=== PATIENT | female | born 1945 | race Caucasian/White ===

== ENCOUNTER 2021-11-19 21:14 | Inpatient (IN) ==
[2021-11-19] MEDS ORDERED: ACETAMINOPHEN 1,000 MG/100 ML VIAL IV STA (22:04)
[2021-11-19] MEDS ORDERED: guaiFENesin 600 MG TABCR PO STA (22:04)
[2021-11-19] MEDS ORDERED: ALBUTEROL HFA 8 GM INHALER INH ONE (22:04)
[2021-11-19] MEDS ORDERED: SODIUM CHLORIDE 0.9% 1000ML 1,000 ML IV ONE (22:04)
[2021-11-19 22:21] LABS: Basophils # (auto) 0.01 K/uL (0-0.2); Basophils % (auto) 0.1 %; Immature Granulocytes # (auto) 0.06 K/uL (0.00-0.02); Immature Granulocytes % (auto) 0.9 %; Lymphocytes % (auto) 13.5 %; Mean Corpuscular Hemoglobin 29.9 pg (25.0-34.0); Mean Corpuscular Hgb Conc 33.3 g/dL (32.0-36.0); Mean Corpuscular Volume 89.8 fL (80.0-100.0); Mean Platelet Volume 9.6 fL (9.4-12.3); Monocytes # (auto) 0.93 K/uL (0.24-0.82); Monocytes % (auto) 13.9 %; Neutrophils # (auto) 4.78 K/uL (1.4-6.5); Neutrophils % (auto) 71.6 %; Platelet Count 169 K/uL (130-400); RDW Coefficient of Variation 13.8 % (11.5-14.5); RDW Standard Deviation 45.2 fL (36.4-46.3); Red Blood Count 5.01 M/uL (3.93-5.22); White Blood Count 6.68 K/ul (4.8-10.8)
--- NOTE | 2021-11-19 22:26 | XRay Report ---
SINGLE VIEW CHEST CLINICAL HISTORY: Atypical chest pain. FINDINGS: An AP, portable, upright chest radiograph is obtained. No prior studies are available for c omparison at the time of dictation. The cardiomediastinal silhouette is unremarkable. There is a larg e hiatal hernia with left basilar atelectasis. The lungs and pleural spaces are clear. No pneumothora x is seen. The skeletal structures are osteopenic. The bony thorax is grossly intact. IMPRESSION: 1. No active disease in the chest. 2. Large hiatal hernia. ACT 112: Negative or not required by law. Electronically signed by: Dawson Mcmahon M.D. 11/19/2021 10:25 PM
[2021-11-19 22:38] LABS: INR 1.1 (0.9-1.1); Prothrombin Time 11.5 Seconds (9.0-12.0)
[2021-11-19 22:53] LABS: Troponin I High Sensitivity 212.2 pg/ml (0-14)
[2021-11-19 22:54] LABS: Albumin Globulin Ratio 1.3 (0.9-2); Albumin Level 3.7 gm/dl (3.4-5.0); Bilirubin,Total 0.8 mg/dl (0.2-1.0); Calcium 8.3 mg/dl (8.5-10.1); Creatinine Clr Calc Pharmacy 54.1 ml/min; Est GFR (African American) 77.2 ml/min; Est GFR (Non-African American) 66.6 ml/min; Globulin 2.9 gm/dl (2.5-4.0); Magnesium 1.9 mg/dl (1.7-2.4); Phosphorus 2.2 mg/dl (2.5-4.9); Potassium 3.6 mmol/L (3.5-5.1); Total Protein 6.6 gm/dl (6.0-8.3)
[2021-11-19] MEDS ORDERED: dexAMETHasone**PF** 10 MG/ML VIAL IV ONE (23:34)
[2021-11-20 00:10] LABS: Base Excess VBG 2.2 mEq/L; HCO3 VBG 28 mmol/L; Oxygen Saturation VBG < 60.0 %; PCO2 VBG 46 mmHg (38-50); PO2 VBG 29 mmHg; pH VBG 7.39 (7.36-7.41)
--- NOTE | 2021-11-20 01:55 | Emergency Department Note ---
Impression & Plan COVID-19, Hypoxia, Elevated troponin ED Provider Note NAME: VALDO LINDSAY AGE: 76 SEX: F ARRIVES VIA: Ambulance INFORMANT: Patient ED PROVIDER(S): Eliazar Mcgill MD CHIEF COMPLAINT: SOB. PLAN: Disposition: Admit MEDICAL DECISION MAKING: The patient is a pleasant 76-year-old woman who presents to the emergency department via EMS for worsening cough, congestion shortness of breath in the setting of symptoms that began last week where she took a home COVID-19 test that was positive. She reports her also became ill around the same time and also tested for COVID-19 with a home test. She reports worsening cough congestion, nausea with decreased oral intake. She reports she is not vaccinated for COVID-19. Per EMS report the patient was found to be in the 80s on room air. On arrival, the patient is ill-appearing but no acute distress, temperature of 37.6 with O2 saturation 90-94 on nasal cannula. Patient appears clinically dry. Patient has a scant intermittent wheeze and lungs are otherwise clear. EKG without overt acute ischemia. CXR negative for acute cardiopulmonary process. WBC, hemoglobin and platelets within normal limits. Chemistry without metabolic acidosis. VBG is unremarkable. Initial high-sensitivity troponin 212, nonspecific. Lipase is not elevated. Procalcitonin is not elevated. COVID-19 PCR was positive. Patient was treated with IV fluid hydration, dexamethasone, guaifenesin, albuterol. Given the patient's hypoxia in the setting of COVID-19 patient agrees with plan for admission. Case [facility], who will evaluate the patient for admission. Triage Nursing notes reviewed and agree them. Prior medical records reviewed Vital Signs: reviewed and remarkable for hypoxia. Differential diagnosis: Reactive airway disease, pneumonia, pneumothorax, COPD, CHF, infections, cardiac ischemia, pulmonary embolism, musculoskeletal, gastrointestinal, as well as other pathologies. ER treatment provided: See below. Diagnostics interpreted by me: ECG: Sinus tachycardia, 111 bpm, no ectopy, nonspecific ST abnormality, no overt ST elevation or depression, QTC 446, QRS 72. Cardiac Monitoring: An order for continuous cardiac monitoring was placed and demonstrated Sinus tachycardia, 111 bpm, no ectopy. Laboratory studies: See below Imaging studies: See below Consultation(s): Case was discussed with Dr. Hernandez, [facility] hospitalist, who will evaluate the patient for admission. HPI: The patient is a pleasant 76-year-old woman who presents to the emergency department via EMS for worsening cough, congestion shortness of breath in the setting of symptoms that began last week where she took a home COVID-19 test that was positive. She reports her also became ill around the same time and also tested for COVID-19 with a home test. She reports worsening cough con gestion, nausea with decreased oral intake. She reports she is not vaccinated for COVID-19. Per EMS report the patient was found to be in the 80s on room air. ROS: See above HPI for pertinent positives & negatives. A total of 10 systems reviewed and were otherwise negative. VITALS:See Below PHYSICAL EXAMINATION: GENERAL: Awake, alert, uncomfortable-appearing, in no distress HENT: Normocephalic, atraumatic. Oropharynx with dry mucous membranes and otherwise unremarkable. EYES: Normal conjunctiva. Sclera non-icteric. NECK: Supple. No nuchal rigidity. FROM. No JVD. RESPIRATORY: Scant intermittent wheeze and otherwise clear to auscultation. CARDIAC: Regular rate, normal rhythm. Extremities warm and well perfused. Pulses equal. ABDOMEN: Soft, non-distended. No tenderness to palpation. No rebound or guarding. No masses. RECTAL: Deferred. MUSCULOSKELETAL: Chest examination reveals no tenderness. The back is sym metrical on inspection without obvious abnormality. There is no CVA tenderness to palpation. No joint edema. LOWER EXTREMITIES: Calves are equal size bilaterally and non-tender. No edema. No discoloration. NEURO: Normal sensorium. No sensory or motor deficits noted. SKIN: No rash or jaundice noted. ED COURSE: Critical Care: I have personally spent greater than 35 minutes of critical care time in the direct management of this patient. This includes bedside care, interpretation of diagnostic studies, and testing, discussion with consultants, patient, and family members, and other required patient management activities. This 35 minutes is in excess of all separately billable procedures. Eliazar Mcgill MD Past Med/Surg History Medical History COVID-19 Family History Other Family history non-contributory Social History Smoking Status: Never smoker Hx Alcohol Use: No Hx Substance Use: No Preferred Language: Citizen Of [place] Communication Ability: Effective Freight Rate Specialist Required: No Beliefs That Will Affect Care: None Current Living Situation: Spouse Other Information That Helps Us Care for You: No Feels Safe at Home: Yes Safety Concerns: Feels Safe At This Time Allergies Allergies Allergy/AdvReac Type Severity Reaction Status Date / Time No Known Allergies Allergy Verified 11/19/21 23:28 Home Meds Home Medications Medication Instructions Recorded Confirmed acetaminophen 300 mg-codeine 30 mg 1 tab PO TID PRN Pain 11/20/21 11/20/21 tablet Results & Data (ED) Vital Signs Vital Signs - 24 hr 11/19/21 21:43 11/19/21 22:15 11/19/21 23:08 Temperature 37.6 C H Temperature Source Oral Pulse Rate 101 H 111 H Pulse Rate [Apical] Pulse Rhythm Regular Respiratory Rate 22 22 Respiratory Effort / Characteristics Spontaneous Respiratory Depth Blood Pressure 183/117 H Blood Pressure [Right Arm] Blood Pressure Mean 139 Blood Pressure Mean [Right Arm] Pulse Oximetry 93 93 Oxygen Delivery Method Nasal Cannula Nasal Cannula Nasal Cannula Oxygen Flow Rate 4 4 4 Sepsis Recent Fever Within 48 Hours Yes Sepsis New/Unexplained Change in Mental Status No Sepsis Action Taken by Nursing Physician Notified Oxygen Flow Rate - Titration Pulse Oximetry Post Tiitration 11/19/21 23:08 11/19/21 23:30 11/20/21 01:00 Temperature Temperature Source Pulse Rate Pulse Rate [Apical] 93 H 88 Pulse Rhythm Respiratory Rate 22 18 Respiratory Effort / Characteristics Respiratory Depth Normal Normal Blood Pressure Blood Pressure [Right Arm] 134/96 166/85 H Blood Pressure Mean Blood Pressure Mean [Right Arm] 108 112 Pulse Oximetry 88 L 91 94 Oxygen Delivery Method Nasal Cannula Nasal Cannula Nasal Cannula Oxygen Flow Rate 2 4 6 Sepsis Recent Fever Within 48 Hours Sepsis New/Unexplained Change in Mental Status Sepsis Action Taken by Nursing Oxygen Flow Rate - Titration 4 Pulse Oximetry Post Tiitration 92 Laboratory Data Attestation: I reviewed the patient's lab results. Result diagrams: 11/19/21 21:37 11/19/21 21:37 Lab Results 11/19/21 11/19/21 11/19/21 Range/Units 21:37 21:37 21:37 WBC 6.68 (4.8-10.8) K/ul RBC 5.01 (3.93-5.22) M/uL Hgb 15.0 (12.0-16.0) g/dl Hct 45.0 H (34.1-44.9) % MCV 89.8 (80.0-100.0) fL MCH 29.9 (25.0-34.0) pg MCHC 33.3 (32.0-36.0) g/dL RDW Std Deviation 45.2 (36.4-46.3) fL RDW Coeff of Jovanni 13.8 (11.5-14.5) % Plt Count 169 (130-400) K/uL MPV 9.6 (9.4-12.3) fL Immature Gran % (Auto) 0.9 % Neut % (Auto) 71.6 % Lymph % (Auto) 13.5 % Moody % (Auto) 13.9 % Eos % (Auto) 0.0 % Baso % (Auto) 0.1 % Neut # (Auto) 4.78 (1.4-6.5) K/uL Lymph # (Auto) 0.90 L (1.2-3.4) K/uL Moody # (Auto) 0.93 H (0.24-0.82) K/uL Eos # (Auto) 0.00 (0-0.50) K/uL Baso # (Auto) 0.01 (0-0.2) K/uL Immature Gran # (Auto) 0.06 H (0.00-0.02) K/uL PT 11.5 (9.0-12.0) Seconds INR 1.1 (0.9-1.1) VBG pH (7.36-7.41) VBG pCO2 (38-50) mmHg VBG pO2 mmHg VBG HCO3 mmol/L VBG O2 Saturation % VBG Base Excess mEq/L Sodium 138 (136-145) mmol/L Potassium 3.6 (3.5-5.1) mmol/L Chloride 105 (98-107) mmol/L Carbon Dioxide 24 (21-32) mmol/L Anion Gap 9 (3-11) BUN 16 (6-23) mg/dl Creatinine 0.84 (0.6-1.2) mg/dl Est Cr Clr Drug Dosing 54.1 ml/min Est GFR ( Amer) 77.2 ml/min Est GFR (Non-Af Amer) 66.6 ml/min BUN/Creatinine Ratio 19.0 (10-20) Glucose 120 H (70-99(Fasting)) mg/dl Calcium 8.3 L (8.5-10.1) mg/dl Phosphorus 2.2 L (2.5-4.9) mg/dl Magnesium 1.9 (1.7-2.4) mg/dl Total Bilirubin 0.8 (0.2-1.0) mg/dl AST 25 (13-39) U/L ALT 25 (7-52) U/L Alkaline Phosphatase 63 (34-104) U/L Troponin I High Sens 212.2 H* (0-14) pg/ml Total Protein 6.6 (6.0-8.3) gm/dl Albumin 3.7 (3.4-5.0) gm/dl Globulin 2.9 (2.5-4.0) gm/dl Albumin/Globulin Ratio 1.3 (0.9-2) Lipase 46 (11-82) U/L Procalcitonin (0-0.5) ng/ml SARS-CoV-2 (PCR) (Negative) 11/19/21 11/19/21 11/19/21 Range/Units 21:37 22:17 23:55 WBC (4.8-10.8) K/ul RBC (3.93-5.22) M/uL Hgb (12.0-16.0) g/dl Hct (34.1-44.9) % MCV (80.0-100.0) fL MCH (25.0-34.0) pg MCHC (32.0-36.0) g/dL RDW Std Deviation (36.4-46.3) fL RDW Coeff of Jovanni (11.5-14.5) % Plt Count (130-400) K/uL MPV (9.4-12.3) fL Immature Gran % (Auto) % Neut % (Auto) % Lymph % (Auto) % Moody % (Auto) % Eos % (Auto) % Baso % (Auto) % Neut # (Auto) (1.4-6.5) K/uL Lymph # (Auto) (1.2-3.4) K/uL Moody # (Auto) (0.24-0.82) K/uL Eos # (Auto) (0-0.50) K/uL Baso # (Auto) (0-0.2) K/uL Immature Gran # (Auto) (0.00-0.02) K/uL PT (9.0-12.0) Seconds INR (0.9-1.1) VBG pH 7.39 (7.36-7.41) VBG pCO2 46 (38-50) mmHg VBG pO2 29 mmHg VBG HCO3 28 mmol/L VBG O2 Saturation < 60.0 % VBG Base Excess 2.2 mEq/L Sodium (136-145) mmol/L Potassium (3.5-5.1) mmol/L Chloride (98-107) mmol/L Carbon Dioxide (21-32) mmol/L Anion Gap (3-11) BUN (6-23) mg/dl Creatinine (0.6-1.2) mg/dl Est Cr Clr Drug Dosing ml/min Est GFR ( Amer) ml/min Est GFR (Non-Af Amer) ml/min BUN/Creatinine Ratio (10-20) Glucose (70-99(Fasting)) mg/dl Calcium (8.5-10.1) mg/dl Phosphorus (2.5-4.9) mg/dl Magnesium (1.7-2.4) mg/dl Total Bilirubin (0.2-1.0) mg/dl AST (13-39) U/L ALT (7-52) U/L Alkaline Phosphatase (34-104) U/L Troponin I High Sens (0-14) pg/ml Total Protein (6.0-8.3) gm/dl Albumin (3.4-5.0) gm/dl Globulin (2.5-4.0) gm/dl Albumin/Globulin Ratio (0.9-2) Lipase (11-82) U/L Procalcitonin < 0.05 (0-0.5) ng/ml SARS-CoV-2 (PCR) POSITIVE A* (Negative) Administered Medications Sodium Chloride (1/2 Nss) 1,000 mls @ 75 mls/hr IV .[id number] SAMANTA Stop: 11/20/21 15:47 Last Admin: 11/20/21 02:51 Dose: 75 mls/hr Documented By: PETER Discontinued Medications Albuterol (Albuterol Hfa 8 Gm Inhaler) 2 puffs INH NOW ONE Stop: 11/19/21 22:05 Last Admin: 11/19/21 22:23 Dose: 2 puffs Documented By: WILBERT Dexamethasone Sodium Phosphate (DexamethasonePf 10 Mg/Ml Vial) 10 mg IV NOW ONE Stop: 11/19/21 23:35 Last Admin: 11/20/21 00:01 Dose: 10 mg Documented By: IVAN Guaifenesin (Guaifenesin 600 Mg Tabcr) 600 mg PO NOW STA Stop: 11/19/21 22:05 Last Admin: 11/19/21 22:22 Dose: 600 mg Documented By: WILBERT Sodium Chloride (Nss 1000ml) 1,000 mls @ 999 mls/hr IV .[id number] ONE Stop: 11/19/21 23:04 Last Infusion: 11/19/21 23:30 Dose: 0 mls/hr Documented By: Admin: 11/19/21 22:24 Dose: 999 mls/hr Documented By: WILBERT Acetaminophen (Ofirmev) 1,000 mg in 100 mls @ 400 mls/hr IV NOW STA Stop: 11/19/21 22:18 Last Infusion: 11/19/21 23:03 Dose: 0 mls/hr Documented By: Admin: 11/19/21 22:23 Dose: 400 mls/hr Documented By: WILBERT Remdesivir 200 mg/ Sodium (Chloride) 250 mls @ 125 mls/hr IV ONE ONE; Protocol Stop: 11/20/21 04:44 Last Admin: 11/20/21 02:52 Dose: 125 mls/hr Documented By: PETER Imaging Data Radiologist's Impression: Chest X-Ray 11/19/21 22:04 SINGLE VIEW CHEST CLINICAL HISTORY: Atypical chest pain. FINDINGS: An AP, portable, upright chest radiograph is obtained. No prior studies are available for comparison at the time of dictation. The cardiomediastinal silhouette is unremarkable. There is a large hiatal hernia with left basilar atelectasis. The lungs and pleural spaces are clear. No pneumothorax is seen. The skeletal structures are osteopenic. The bony thorax is grossly intact. IMPRESSION: 1. No active disease in the chest. 2. Large hiatal hernia. ACT 112: Negative or not required by law. Electronically signed by: Dawson Mcmahon M.D. 11/19/2021 10:25 PM Discharge Plan Visit Data Chief Complaint: Respiratory Distress Stated Complaint: SHORTNESS OF BREATH/WEAKNESS ED Provider: Eliazar Mcgill Discharge Problem: COVID-19, Hypoxia, Elevated troponin Patient Disposition: Admitted As Inpatient Discharge Instructions Interventions: ED Discharge Assessment Last Done: 11/20/21 02:04
--- NOTE | 2021-11-20 02:04 | History and Physical Report ---
DATE OF ADMISSION: 11/19/2021. CHIEF COMPLAINT: COVID, hypoxia. HISTORY OF PRESENT ILLNESS: A 76-year-old female with no significant past medical history who presents with COVID. The patient is very hard of hearing, seems to be a poor historian. Says she does not have any medical problems. She states, since about a week, she is having COVID symptoms, feeling sick. Denies any fever, but has some mild cough, mild headache, nausea, poor appetite, body aches, and when she came to the ER, she was 88% on room air. On 4 liters, saturating okay and seems comfortable. Denies any blurred visions, no runny nose, no sore throat. No chest pain. Denies feeling short of breath, has some nausea, no vomiting, no abdominal pain. Normal bowel and bladder movements. No swelling in the legs. ALLERGIES: No known drug allergies. PAST MEDICAL HISTORY: As mentioned above. PAST SURGICAL HISTORY: Denies any surgical history. MEDICATIONS: The patient denies taking any medication at home. FAMILY HISTORY: The patient denies any family history. SOCIAL HISTORY: The patient denies smoking of alcohol. Lives with her . REVIEW OF SYSTEMS: As per HPI. Rest of review of systems is negative. PHYSICAL EXAMINATION: GENERAL: The patient is of moderate build, not in acute distress. VITAL SIGNS: Temperature 37.6, pulse 93, respiration 22, blood pressure 134/96, oxygen 91% on 4 liters. HEENT: Pupils equal, round and reactive to light. Oral mucosa moist. NECK: No JVD, no neck masses. CARDIOVASCULAR: S1 and S2 heard. Regular rate and rhythm. No murmur, no gallop. RESPIRATORY SYSTEM: Normal AP diameter. No accessory muscle use. No wheezing or crackles. ABDOMEN: Soft, bowel sounds present, nontender, no distention. CENTRAL NERVOUS SYSTEM: Cranial nerves II-XII grossly intact, nonfocal. EXTREMITIES: No edema, no erythema. LABORATORY DATA: WBC 6.6, hemoglobin 15, hematocrit 45, platelets 169. PT 11.5, INR 1.1. Venous blood gas; pH of 7.39, pCO2 of 46, pO2 of 29, bicarbonate 28. Sodium 138, potassium 3.6, chloride 105, bicarbonate 24, BUN 16, creatinine 0.8, serum glucose 120, calcium 8.3, phosphorus 2.2, magnesium 1.9, total bilirubin 0.8, AST 25, ALT 25, alkaline phosphatase 63. Troponin I high sensitivity 212. Lipase 48. Procalcitonin less than 0.05. SARS-CoV-2 PCR positive. IMAGING: Chest x-ray: No active disease in the chest. EKG: Sinus tachycardia at a rate of 111, possible left atrial enlargement, nonspecific ST abnormalities. ASSESSMENT AND PLAN: This 76-year-old female presents with COVID. 1. COVID-19 and hypoxia, 88% on room air, requiring oxygen. Chest x-ray, no obvious pneumonia. Symptoms going on for about a week, started on Decadron and remdesivir. Follow the remdesivir laboratories. Monitor in the med-telemetry. 2. Elevation of troponin high sensitivity at 212. EKG, no acute findings. The patient denies any chest pain. Possibly from demand ischemia. We will follow serial cardiac enzymes. 3. Deep venous thrombosis prophylaxis, Lovenox. DISPOSITION: Admit to med-tele. Expect to discharge home and follow up with family doctor. Job ID: [id number] [facility]ITALChristina
[2021-11-20] MEDS ORDERED: NITROGLYCERIN SL 0.4 MG/TAB TAB SL PRN (02:28)
[2021-11-20] MEDS ORDERED: ACETAMINOPHEN 325 MG TAB PO PRN (02:28)
[2021-11-20] MEDS ORDERED: SODIUM CHLORIDE 0.45 % 1,000 ML IV SCH (02:28)
[2021-11-20] MEDS ORDERED: REMDESIVIR 200 MG in SODIUM CHLORIDE 0.9% 210 ML IV ONE (02:45)
[2021-11-20] MEDS: ENOXAPARIN INJ 40 MG/0.4 ML SYR SQ SCH (05:59)
[2021-11-20 07:25] LABS: Basophils # (auto) 0.01 K/uL (0-0.2); Basophils % (auto) 0.3 %; Hematocrit (blood only) 42.6 % (34.1-44.9); Hemoglobin 14.5 g/dl (12.0-16.0); Immature Granulocytes # (auto) 0.05 K/uL (0.00-0.02); Immature Granulocytes % (auto) 1.4 %; Lymphocytes % (auto) 10.9 %; Mean Corpuscular Hemoglobin 29.9 pg (25.0-34.0); Mean Corpuscular Volume 87.8 fL (80.0-100.0); Mean Platelet Volume 9.5 fL (9.4-12.3); Monocytes # (auto) 0.13 K/uL (0.24-0.82); Monocytes % (auto) 3.6 %; Neutrophils # (auto) 3.07 K/uL (1.4-6.5); Neutrophils % (auto) 83.8 %; Platelet Count 132 K/uL (130-400); RDW Coefficient of Variation 13.7 % (11.5-14.5); Red Blood Count 4.85 M/uL (3.93-5.22); White Blood Count 3.66 K/ul (4.8-10.8)
[2021-11-20] MEDS: dexAMETHasone 6 MG in SYRINGE 0 ML IV SCH (07:43)
[2021-11-20 07:49] LABS: BUN Creatinine Ratio 19.4 (10-20); Calcium 7.9 mg/dl (8.5-10.1); Creatinine Clr Calc Pharmacy 62.8 ml/min; Est GFR (Non-African American) 80.2 ml/min; Magnesium 1.9 mg/dl (1.7-2.4); Potassium 3.9 mmol/L (3.5-5.1)
[2021-11-20 08:36] LABS: Troponin I High Sensitivity 240.9 pg/ml (0-14)
[2021-11-20] MEDS: LOSARTAN POTASSIUM 25 MG TAB PO SCH (08:48)
[2021-11-20] MEDS ORDERED: LOSARTAN POTASSIUM 25 MG TAB PO SCH (09:00)
[2021-11-20] MEDS ORDERED: hydrOXYzine HCl 25 MG TAB PO PRN (09:06)
[2021-11-20 09:15] LABS: Appearance Urine Cloudy (Clear); Bacteria Urine Automated Negative (Negative); Bilirubin Urine Negative (Negative); Blood Urine Trace (Negative); Color Urine Yellow; Epithelial Cell Urine Auto >30 /lpf (0-5); Glucose Urine UA Trace (Negative); Ketones Urine Trace (Negative); Leukocyte Esterase Urine Trace (Negative); Nitrite Urine Negative (Negative); Protein Urine 1+ (Negative); RBC Urine Automated 0-4 /hpf (0-4); Specific Gravity Urine 1.023 (1.000-1.030); Urobilinogen Urine Negative (Negative)
--- NOTE | 2021-11-20 11:17 | Electrocardiogram Report ---
Test Reason : Blood Pressure : / mmHG Vent. Rate : 111 BPM Atrial Rate : 111 BPM P-R Int : 126 ms QRS Dur : 072 ms QT Int : 328 ms P-R-T Axes : 062 050 063 degrees QTc Int : 446 ms Sinus tachycardia Left atrial enlargement Nonspecific ST abnormality Abnormal ECG No previous ECGs available Confirmed by Hubert Quiroz ([id number]) on 11/20/2021 11:16:37 AM Referred By: REFERRED SELF Confirmed By:Hubert Quiroz
[2021-11-20] MEDS: PARoxetine HCL 10 MG TAB PO SCH (13:03)
--- NOTE | 2021-11-20 13:22 | Hospitalist Progress Note ---
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 Patient found to be COVID- positive. She is not vaccinated. She is being managed for the following: #. COVID-19 infection #. Acute hypoxemic respiratory failure Patient not vaccinated against COVID, not on home oxygen. Admitting WBC and Procal wnl. Patient was saturating 88% on room air at presentation, required up to 6 L oxygen, requiring 4 L oxygen currently. Continue with Decadron and remdesivir started 11/20. Patient with cough with clear sputum, altered taste sensation. Self proning as able, incentive spirometer, flutter valve, Tessalon Perles, Mucinex. Pt afebrile, WBC downtrending. Labs in AM. Continue to monitor over telemetry. #. Elevation of troponin, likely demand ischemia Troponin elevated at 212, up trended slightly, follow-up third troponin level Admitting EKG with no acute findings except for sinus tachycardia Likely demand ischemia, patient with no chest pain, continue to monitor. #. Likely UTI, recurrent : Patient with complain of incontinence and increased frequency, UA questionable. Rocephin. #. Hypertension Patient with apparently no outpatient PCP visit, not sure. Blood pressure elevated while in hospital, started on a low-dose losartan Continue to monitor BP, uptitrate meds as appropriate. #. Other chronic medical conditions: Likely anxiety/depression/low back pain Patient complaining of low back pain, per RN's discussion with her daughter patient takes paroxetine 10 mg daily and clonazepam 0.5 mg as needed daily for anxiety. Vistaril for anxiety for now. Paroxetine daily started. I tried to contact patient's daughter Hiwot [[phone]] multiple times today but in vain and could not leave voicemail, it would ask remote access code at the end. #. DVT prophylaxis: Enoxaparin #. Full code Text document was generated using voice recognition software. It may contain grammatical or spelling errors. Kindly contact undersigned for clarification of any documentation item in question. Admission and Anticipated Discharge Date Admission Date: November 20, 2021 Subjective Patient seen and examined at bedside as a follow-up of COVID-19 infection and hypoxia and elevated troponin and possible UTI. Patient was lying in bed, on 4 L nasal cannula oxygen, NAD, reports no new acute events overnight. Patient reports cough around the same since last 1 week with clear mucus, reports increased frequency in urine, is eating around 25 to 30% per RN, does not have appetite but is trying to eat per RN, no nausea or vomiting, denies headache or dizziness, reports no belly pain. Of note patient is very hard of hearing and difficult to get history/ROS from. Patient is not vaccinated against COVID. Patient mostly says "I am not sure" to a lot of questions. Physical Exam Physical Exam: GENERAL: Alert and oriented x3. NAD, on 4L NC O2. Very [place]. HEENT: No pallor, no icterus. Pupils equal, round and reactive to light. Oral mucosa moist. NECK: No JVD, no neck masses. HEART: S1 and S2 heard. Regular rate and rhythm. No murmur, no gallop. RESPIRATORY SYSTEM: Normal AP diameter. No accessory muscle use. No wheezing, no crackles. ABDOMEN: Soft, bowel sounds present, nontender, no distention. CENTRAL NERVOUS SYSTEM: No facial droop. Speech is clear. Obeys simple commands. Moves extremities. EXTREMITIES: No edema, no erythema seen. Results & Data Results & Data ([facility]) Vital Signs (Past 12 Hours) Vital Signs Temp Pulse Pulse Resp BP BP Pulse Ox 11/20/21 07:47 69 11/20/21 07:39 36.3 C L 81 23 180/106 H 94 11/20/21 07:28 11/20/21 03:01 85 11/20/21 02:43 11/20/21 02:29 36.9 C 89 20 179/110 H 93 11/20/21 02:04 85 22 150/86 H 93 O2 Del Method O2 Flow Rate 11/20/21 07:47 11/20/21 07:39 Nasal Cannula 4 11/20/21 07:28 Nasal Cannula 11/20/21 03:01 11/20/21 02:43 Nasal Cannula 6 11/20/21 02:29 Nasal Cannula 6 11/20/21 02:04 Nasal Cannula 6
[2021-11-20] MEDS: cefTRIAXone SODIUM 1,000 MG in DEXTROSE 5% 50 ML IV SCH (13:37)
[2021-11-20] MEDS: BENZONATATE 100 MG CAPSULE PO SCH ×2 (13:37→19:52)
[2021-11-20] MEDS: guaiFENesin 600 MG TABCR PO SCH (19:51)
[2021-11-20] MEDS ORDERED: hydrALAZINE HCL 20 MG/ML VIAL IV ONE (23:34)
[2021-11-21] MEDS: ENOXAPARIN INJ 40 MG/0.4 ML SYR SQ SCH (05:07)
[2021-11-21 07:23] LABS: Hematocrit (blood only) 42.6 % (34.1-44.9); Hemoglobin 14.6 g/dl (12.0-16.0); Mean Corpuscular Hemoglobin 29.9 pg (25.0-34.0); Mean Corpuscular Hgb Conc 34.3 g/dL (32.0-36.0); Mean Corpuscular Volume 87.3 fL (80.0-100.0); Mean Platelet Volume 9.5 fL (9.4-12.3); Platelet Count 148 K/uL (130-400); RDW Coefficient of Variation 13.4 % (11.5-14.5); RDW Standard Deviation 43.4 fL (36.4-46.3); Red Blood Count 4.88 M/uL (3.93-5.22)
[2021-11-21 07:34] LABS: Albumin Globulin Ratio 1.4 (0.9-2); Albumin Level 3.5 gm/dl (3.4-5.0); Bilirubin,Total 0.8 mg/dl (0.2-1.0); Calcium 8.3 mg/dl (8.5-10.1); Creatinine Clr Calc Pharmacy 61.1 ml/min; Est GFR (African American) 89.9 ml/min; Est GFR (Non-African American) 77.6 ml/min; Globulin 2.5 gm/dl (2.5-4.0); Magnesium 1.8 mg/dl (1.7-2.4); Potassium 3.5 mmol/L (3.5-5.1)
[2021-11-21] MEDS ORDERED: POTASSIUM CHLORIDE CRTAB 20 MEQ TABCR PO STA (07:36)
[2021-11-21] MEDS: POT PHOSPHATE MONOBASIC W/ SOD TAB PO SCH ×4 (08:09→20:03)
[2021-11-21] MEDS: dexAMETHasone 6 MG in SYRINGE 0 ML IV SCH (08:09)
[2021-11-21] MEDS: guaiFENesin 600 MG TABCR PO SCH ×2 (08:10→20:03)
[2021-11-21] MEDS: LOSARTAN POTASSIUM 25 MG TAB PO SCH (08:10)
[2021-11-21] MEDS: PARoxetine HCL 10 MG TAB PO SCH (08:10)
[2021-11-21] MEDS: BENZONATATE 100 MG CAPSULE PO SCH ×3 (08:10→20:03)
[2021-11-21] MEDS: ONDANSETRON INJ 2 MG/ML 2 ML VIAL IV PRN (08:29)
[2021-11-21] MEDS: REMDESIVIR 100 MG in SODIUM CHLORIDE 0.9% 230 ML IV SCH (11:49)
[2021-11-21] MEDS: cefTRIAXone SODIUM 1,000 MG in DEXTROSE 5% 50 ML IV SCH (13:22)
--- NOTE | 2021-11-21 17:14 | Hospitalist Progress Note ---
Date of Service November 21, 2021 Assessment & Plan (1) COVID-19: Plan 76-year-old lady with no known PMH [outpatient epic review with no information and seems like she had a PCP visit 10 years ago] presented 11/20 with complaint of cough and respiratory symptoms since 1 week [employer]. Patient found to be COVID- positive. She is not vaccinated. She is being managed for the following: #. COVID-19 infection #. Acute hypoxemic respiratory failure Patient not vaccinated against COVID, not on home oxygen. Admitting WBC and Procal wnl. Patient was saturating 88% on room air at presentation, required up to 6 L oxygen, requiring 4 L oxygen currently. Continue with Decadron and remdesivir started 11/20. Patient with cough with clear sputum, altered taste sensation. Self proning as able, incentive spirometer, flutter valve, Tessalon Perles, Mucinex. Pt afebrile, WBC now WNL. Continue to monitor over telemetry. #. Elevation of troponin, likely demand ischemia Troponin elevated at 212, up trended slightly, follow-up third troponin level Admitting EKG with no acute findings except for sinus tachycardia Likely demand ischemia, patient with no chest pain, continue to monitor. #. Likely UTI, recurrent : Patient with complain of incontinence and increased frequency, UA questionable. Rocephin. #. Hypertension Patient with apparently no outpatient PCP visit, not sure. Blood pressure elevated while in hospital, started on a low-dose losartan 11/20 Continue to monitor BP, uptitrate meds as appropriate. Now fairly better BP readings. #. Other chronic medical conditions: Likely anxiety/depression/low back pain Patient complaining of low back pain, patient takes paroxetine 10 mg daily and clonazepam 0.5 mg as needed daily for anxiety. Vistaril for anxiety for now. #. DVT prophylaxis: Enoxaparin #. Full code Text document was generated using voice recognition software. It may contain grammatical or spelling errors. Kindly contact undersigned for clarification of any documentation item in question. Admission and Anticipated Discharge Date Admission Date: November 20, 2021 Subjective Patient seen and examined at bedside as a follow-up of COVID-19 infection and hypoxia and elevated troponin and possible UTI. Patient was lying in bed, on 2 L nasal cannula oxygen, NAD, reports no new acute events overnight. Patient reports cough and appetite improving, no nausea or vomiting, denies headache or dizziness, reports no belly pain. Pt reports feeling better. Of note patient is very hard of hearing and difficult to get history/ROS from. Patient is not vaccinated against COVID. Patient mostly says "I am not sure" to a lot of questions. Physical Exam Physical Exam: GENERAL: Alert and oriented x3. NAD, on 2L NC O2. Very [place]. HEENT: No pallor, no icterus. Pupils equal, round and reactive to light. Oral mucosa moist. NECK: No JVD, no neck masses. HEART: S1 and S2 heard. Regular rate and rhythm. No murmur, no gallop. RESPIRATORY SYSTEM: Normal AP diameter. No accessory muscle use. No wheezing, no crackles. ABDOMEN: Soft, bowel sounds present, nontender, no distention. CENTRAL NERVOUS SYSTEM: No facial droop. Speech is clear. Obeys simple commands. Moves extremities. EXTREMITIES: No edema, no erythema seen. Results & Data Results & Data ([facility]) Vital Signs (Past 12 Hours) Vital Signs Temp Pulse Pulse Resp BP Pulse Ox O2 Del Method 11/21/21 16:39 36.8 C 76 17 149/85 H 91 Nasal Cannula 11/21/21 15:29 80 11/21/21 11:51 36.7 C 88 24 154/97 H 92 Nasal Cannula 11/21/21 08:16 Nasal Cannula 11/21/21 07:49 37 C 82 22 140/86 95 Nasal Cannula 11/21/21 07:28 79 O2 Flow Rate 11/21/21 16:39 2 11/21/21 15:29 11/21/21 11:51 2 11/21/21 08:16 2 11/21/21 07:49 3 11/21/21 07:28
[2021-11-22] MEDS: ENOXAPARIN INJ 40 MG/0.4 ML SYR SQ SCH (05:50)
[2021-11-22 07:10] LABS: Creatinine Clr Calc Pharmacy 59.6 ml/min; Est GFR (African American) 96.2 ml/min
[2021-11-22] MEDS: LOSARTAN POTASSIUM 25 MG TAB PO SCH (08:02)
[2021-11-22] MEDS: BENZONATATE 100 MG CAPSULE PO SCH ×3 (08:02→20:43)
[2021-11-22] MEDS: dexAMETHasone 6 MG in SYRINGE 0 ML IV SCH (08:02)
[2021-11-22] MEDS: POT PHOSPHATE MONOBASIC W/ SOD TAB PO SCH ×4 (08:02→20:44)
[2021-11-22] MEDS: guaiFENesin 600 MG TABCR PO SCH ×2 (08:02→20:43)
[2021-11-22] MEDS: PARoxetine HCL 10 MG TAB PO SCH (08:02)
[2021-11-22] MEDS: REMDESIVIR 100 MG in SODIUM CHLORIDE 0.9% 230 ML IV SCH (11:59)
[2021-11-22] MEDS: cefTRIAXone SODIUM 1,000 MG in DEXTROSE 5% 50 ML IV SCH (12:59)
--- NOTE | 2021-11-22 17:16 | Hospitalist Progress Note ---
Date of Service November 22, 2021 Assessment & Plan (1) COVID-19: Plan 76-year-old lady with no known PMH [outpatient epic review with no information and seems like she had a PCP visit 10 years ago] presented 11/20 with complaint of cough and respiratory symptoms since 1 week [employer]. Patient found to be COVID- positive. She is not vaccinated. She is being managed for the following: #. COVID-19 infection #. Acute hypoxemic respiratory failure Patient not vaccinated against COVID, not on home oxygen. Admitting WBC and Procal wnl. Patient was saturating 88% on room air at presentation, required up to 6 L oxygen, requiring 4 L oxygen currently. Continue with Decadron and remdesivir started 11/20. Patient with cough with clear sputum, altered taste sensation. Self proning as able, incentive spirometer, flutter valve, Tessalon Perles, Mucinex. Pt afebrile, WBC now WNL. Continue to monitor over telemetry. Monitor and replete electrolytes. #. Elevation of troponin, likely demand ischemia Troponin elevated at presentation. Admitting EKG with no acute findings except for sinus tachycardia Likely demand ischemia, patient with no chest pain, continue to monitor. #. Likely UTI, recurrent : Patient with complain of incontinence and increased frequency, UA questionable. Rocephin. #. Hypertension Patient with apparently no outpatient PCP visit, not sure. Tried to call Pt's dtr again today 11/22 with same response as prior, couldn't leave voicemail. Blood pressure elevated while in hospital, started on a low-dose losartan 11/20, BP still elevated but better, will add small dose amlod 11/22. Continue to monitor BP, uptitrate meds as appropriate. #. Other chronic medical conditions: Likely anxiety/depression/low back pain Patient complaining of low back pain, patient takes paroxetine 10 mg daily and clonazepam 0.5 mg as needed daily for anxiety. Vistaril for anxiety for now. #. DVT prophylaxis: Enoxaparin #. Full code Text document was generated using voice recognition software. It may contain grammatical or spelling errors. Kindly contact undersigned for clarification of any documentation item in question. Admission and Anticipated Discharge Date Admission Date: November 20, 2021 Subjective Patient seen and examined at bedside as a follow-up of COVID-19 infection and hypoxia and elevated troponin and possible UTI. Patient was lying in bed, on 2 L nasal cannula oxygen, NAD, reports no new acute events overnight. Patient reports cough and appetite improving even better, no nausea or vomiting, denies headache or dizziness, reports no belly pain. Pt reports feeling better. Of note patient is very hard of hearing and difficult to get history/ROS from. Patient is not vaccinated against COVID. Patient mostly says "I am not sure" to a lot of questions. Physical Exam Physical Exam: GENERAL: Alert and oriented x3. NAD, on 2L NC O2. Very [place]. HEENT: No pallor, no icterus. Pupils equal, round and reactive to light. Oral mucosa moist. NECK: No JVD, no neck masses. HEART: S1 and S2 heard. Regular rate and rhythm. No murmur, no gallop. RESPIRATORY SYSTEM: Normal AP diameter. No accessory muscle use. No wheezing, no crackles. ABDOMEN: Soft, bowel sounds present, nontender, no distention. CENTRAL NERVOUS SYSTEM: No facial droop. Speech is clear. Obeys simple commands. Moves extremities. EXTREMITIES: No edema, no erythema seen. Results & Data Results & Data ([facility]) Vital Signs (Past 12 Hours) Vital Signs Temp Pulse Pulse Resp BP Pulse Ox O2 Del Method 11/22/21 16:30 71 11/22/21 16:00 36.7 C 65 18 164/79 H 94 Nasal Cannula 11/22/21 12:46 36.9 C 79 22 150/84 H 91 Nasal Cannula 11/22/21 08:53 70 11/22/21 08:53 Nasal Cannula O2 Flow Rate 11/22/21 16:30 11/22/21 16:00 2 11/22/21 12:46 3 11/22/21 08:53 11/22/21 08:53 2
[2021-11-22] MEDS ORDERED: amLODIPine BESYLATE 5 MG TAB PO SCH (21:00)
[2021-11-23] MEDS: ENOXAPARIN INJ 40 MG/0.4 ML SYR SQ SCH (06:11)
[2021-11-23] MEDS: ONDANSETRON INJ 2 MG/ML 2 ML VIAL IV PRN (06:40)
[2021-11-23 07:04] LABS: Creatinine Clr Calc Pharmacy 57.9 ml/min; Est GFR (Non-African American) 80.2 ml/min
[2021-11-23] MEDS: guaiFENesin 600 MG TABCR PO SCH (08:12)
[2021-11-23] MEDS: BENZONATATE 100 MG CAPSULE PO SCH ×2 (08:12→14:21)
[2021-11-23] MEDS: LOSARTAN POTASSIUM 25 MG TAB PO SCH (08:12)
[2021-11-23] MEDS: dexAMETHasone 6 MG in SYRINGE 0 ML IV SCH (08:13)
[2021-11-23] MEDS: PARoxetine HCL 10 MG TAB PO SCH (10:58)
[2021-11-23] MEDS ORDERED: METOPROLOL TARTRATE 25 MG TAB PO SCH (11:45)
[2021-11-23] MEDS: REMDESIVIR 100 MG in SODIUM CHLORIDE 0.9% 230 ML IV SCH (12:13)
[2021-11-23] MEDS: cefTRIAXone SODIUM 1,000 MG in DEXTROSE 5% 50 ML IV SCH (14:21)
--- NOTE | 2021-11-23 15:44 | Discharge Summary ---
Date of Service November 23, 2021 Admission HPI Per Admitting Provider CHIEF COMPLAINT: COVID, hypoxia. HISTORY OF PRESENT ILLNESS: A 76-year-old female with no significant past medical history who presents with COVID. The patient is very hard of hearing, seems to be a poor historian. Says she does not have any medical problems. She states, since about a week, she is having COVID symptoms, feeling sick. Denies any fever, but has some mild cough, mild headache, nausea, poor appetite, body aches, and when she came to the ER, she was 88% on room air. On 4 liters, saturating okay and seems comfortable. Denies any blurred visions, no runny nose, no sore throat. No chest pain. Denies feeling short of breath, has some nausea, no vomiting, no abdominal pain. Normal bowel and bladder movements. No swelling in the legs. ALLERGIES: No known drug allergies. PAST MEDICAL HISTORY: As mentioned above. PAST SURGICAL HISTORY: Denies any surgical history. MEDICATIONS: The patient denies taking any medication at home. FAMILY HISTORY: The patient denies any family history. SOCIAL HISTORY: The patient denies smoking of alcohol. Lives with her . REVIEW OF SYSTEMS: As per HPI. Rest of review of systems is negative. Admission Exam Per Admitting Provider GENERAL: The patient is of moderate build, not in acute distress. VITAL SIGNS: Temperature 37.6, pulse 93, respiration 22, blood pressure 134/96, oxygen 91% on 4 liters. HEENT: Pupils equal, round and reactive to light. Oral mucosa moist. NECK: No JVD, no neck masses. CARDIOVASCULAR: S1 and S2 heard. Regular rate and rhythm. No murmur, no gallop. RESPIRATORY SYSTEM: Normal AP diameter. No accessory muscle use. No wheezing or crackles. ABDOMEN: Soft, bowel sounds present, nontender, no distention. CENTRAL NERVOUS SYSTEM: Cranial nerves II-XII grossly intact, nonfocal. EXTREMITIES: No edema, no erythema. Principal Diagnosis COVID-19 infection Acute hypoxemic respiratory failure Hypertension Discharge Exam GENERAL: Alert and oriented x3. NAD, on 2L NC O2. Very [place]. HEENT: No pallor, no icterus. Pupils equal, round and reactive to light. Oral mucosa moist. NECK: No JVD, no neck masses. HEART: S1 and S2 heard. Regular rate and rhythm. No murmur, no gallop. RESPIRATORY SYSTEM: Normal AP diameter. No accessory muscle use. No wheezing, no crackles. ABDOMEN: Soft, bowel sounds present, nontender, no distention. CENTRAL NERVOUS SYSTEM: No facial droop. Speech is clear. Obeys simple c ommands. Moves extremities. EXTREMITIES: No edema, no erythema seen. Discharge Data Allergies Allergy/AdvReac Type Severity Reaction Status Date / Time No Known Allergies Allergy Verified 11/19/21 23:28 Consultations 11/19/21 23:52 ED Decision to Admit Stat Hospital Course (1) COVID-19: Plan 76-year-old lady with no known PMH [outpatient epic review with no information and seems like she had a PCP visit 10 years ago] presented 11/20 with complaint of cough and respiratory symptoms since 1 week [employer]. Patient found to be COVID- positive. She is not vaccinated. She was managed for the following: #. COVID-19 infection #. Acute hypoxemic respiratory failure Patient not vaccinated against COVID, not on home oxygen. Admitting WBC and Procal wnl. Patient was saturating 88% on room air at presentation, required up to 6 L oxygen, requiring 2 L oxygen currently. Decadron and remdesivir started 11/20 --> patient on the improving trend. Patient being discharged with Decadron for 5 more days. Patient reports improving cough, patient to do incentive spirometer at home as well. Self proning as able, incentive spirometer, flutter valve, Tessalon Perles, Mucinex. Pt afebrile, WBC now WNL. #. Elevation of troponin, likely demand ischemia Troponin elevated at presentation. Admitting EKG with no acute findings except for sinus tachycardia Likely demand ischemia, patient with no chest pain. #. Likely UTI, recurrent : Patient with complain of incontinence and increased frequency, UA questionable. Status post Rocephin. #. Hypertension Patient with apparently no outpatient PCP visit, not sure. Tried to call Pt's dtr again today 11/22 with same response as prior, couldn't leave voicemail. Blood pressure elevated while in hospital, started on low-dose losartan in the evening and metoprolol in the morning. Patient to follow-up with PCP as an outpatient for continued management/monitoring of her hypertension. #. Other chronic medical conditions: Likely anxiety/depression/low back pain Patient complaining of low back pain, patient takes paroxetine 10 mg daily and clonazepam 0.5 mg as needed daily for anxiety. Vistaril for anxiety for now. #. Full code Patient being discharged home with following instruction at the point of discharge: Establish and follow-up with primary care physician within a week time. You have been diagnosed with COVID on 11/20/2021, maintain self-isolation until 5 days from the date of diagnosis and then mandatory wearing of masks around people for another 5 days. Since you are interested in COVID-vaccine, advise you to follow-up with primary care physician as an outpatient after your recovery from this acute illness for pursuing vaccination. Your blood pressure were higher while in hospital, you have been started on two blood pressure medications. You are supposed to take metoprolol in the morning and losartan in the evening. Start both medications from 11/24/21. Get your blood work CBC, magnesium, CMP in a week time and have the results forwarded to your primary care physician. You will be discharged on oral steroid for 5 more days. Patient to continue with incentive spirometer every hour while awake at home for 1 more week. Take your medications as prescribed. Text document was generated using voice recognition software. It may contain grammatical or spelling errors. Kindly contact undersigned for clarification of any documentation item in question. Total Time Total Time Spent Total Time Spent (In Minutes): 35 Discharge Plan Discharge Items Patient Disposition: Home - Self-Care Reason For Visit: RESP DISTRESS? Discharge Diagnosis: COVID-19 infection Acute hypoxemic respiratory failure Hypertension Activity: Resume your previous activity Non-emergency contact: Primary Care Provider Call non-emergency contact if: you have any medication questions Follow-up/Referrals: Westley Tavera [Primary Care Provider] - 12/06/21 10:00 am Diet: Heart Healthy Addtl Attending Provider Instructions: Establish and follow-up with primary care physician within a week time. You have been diagnosed with COVID on 11/20/2021, maintain self-isolation until 5 days from the date of diagnosis and then mandatory wearing of masks around people for another 5 days. Since you are interested in COVID-vaccine, advise you to follow-up with primary care physician as an outpatient after your recovery from this acute illness for pursuing vaccination. Your blood pressure were higher while in hospital, you have been started on two blood pressure medications. You are supposed to take metoprolol in the morning and losartan in the evening. Start both medications from 11/24/21. Get your blood work CBC, magnesium, CMP in a week time and have the results forwarded to your primary care physician. You will be discharged on oral steroid for 5 more days. Patient to continue with incentive spirometer every hour while awake at home for 1 more week. Take your medications as prescribed. Home Isolation COVID-19 Instructions The following information about Home Isolation is from the CDC Website: https://www.cdc.gov/coronavirus/2019-ncov/hcp/vjuvmtpo-ekxfqkc-pxlktp.html Stay home except to get medical care People who are mildly ill with COVID-19 are able to isolate at home during their illness. You should restrict activities outside your home, except for getting medical care. Do not go to work, school, or public areas. Avoid using public transportation, ride-sharing, or taxis. Separate yourself from other people and animals in your home People: As much as possible, you should stay in a specific room and away from other people in your home. Also, you should use a separate bathroom, if available. Animals: You should restrict contact with pets and other animals while you are sick with COVID-19, just like you would around other people. Although there have not been reports of pets or other animals becoming sick with COVID-19, it is still recommended that people sick with COVID-19 limit contact with animals until more information is known about the virus. When possible, have another member of your household care for your animals while you are sick. If you are sick with COVID-19, avoid contact with your pet, including petting, snuggling, being kissed or licked, and sharing food. If you must care for your pet or be around animals while you are sick, wash your hands before and after you interact with pets and wear a face mask. Call ahead before visiting your doctor If you have a medical appointment, call the healthcare provider and tell them that you have or may have COVID-19. This will help the healthcare providers office take steps to keep other people from getting infected or exposed. Wear a face mask You should wear a face mask when you are around other people (e.g., sharing a room or vehicle) or pets and before you enter a healthcare providers office. If you are not able to wear a face mask (for example, because it causes trouble breathing), then people who live with you should not stay in the same room with you, or they should wear a face mask if they enter your room. Cover your coughs and sneezes Cover your mouth and nose with a tissue when you cough or sneeze. Throw used tissues in a lined trash can. Immediately wash your hands with soap and water for at least 20 seconds or, if soap and water are not available, clean your hands with an alcohol-based hand note teller that contains at least 60% alcohol. Clean your hands often Wash your hands often with soap and water for at least 20 seconds, especially after blowing your nose, coughing, or sneezing; going to the bathroom; and before eating or preparing food. If soap and water are not readily available, use an alcohol-based hand note teller with at least 60% alcohol, covering all surfaces of your hands and rubbing them together until they feel dry. Soap and water are the best option if hands are visibly dirty. Avoid touching your eyes, nose, and mouth with unwashed hands. Avoid sharing personal household items You should not share dishes, drinking glasses, cups, eating utensils, towels, or bedding with other people or pets in your home. After using these items, they should be washed thoroughly with soap and water. Clean all high-touch surfaces everyday High touch surfaces include counters, tabletops, doorknobs, bathroom fixtures, toilets, phones, keyboards, tablets, and bedside tables. Also, clean any surfaces that may have blood, stool, or body fluids on them. Use a household cleaning spray or wipe, according to the label instructions. Labels contain instructions for safe and effective use of the cleaning product including precautions you should take when applying the product, such as wearing gloves and making sure you have good ventilation during use of the product. Monitor your symptoms Seek prompt medical attention if your illness is worsening (e.g., difficulty breathing).Beforeseeking care, call your healthcare provider and tell them that you have, or are being evaluated for, COVID-19. Put on a face mask before you enter the facility. These steps will help the healthcare providers office to keep other people in the office or waiting room from getting infected or exposed. Ask your healthcare provider to call the local or state health department. Persons who are placed under active monitoring or facilitated self- monitoring should follow instructions provided by their local health department or occupational health professionals, as appropriate. When working with your local health department check their available hours. If you have a medical emergency and need to call 911, notify the dispatch personnel that you have, or are being evaluated for COVID-19. If possible, put on a face mask before emergency medical services arrive. Discontinuing home isolation Patients with confirmed COVID-19 should remain under home isolation precautions until the risk of secondary transmission to others is thought to be low. The decision to discontinue home isolation precautions should be made on a [id number] basis, in consultation with healthcare providers and [facility] and [facility] health departments. Pending Studies at Discharge: No Stand-Alone Forms: [facility] Hydrophi, Smoking Cessation Medications and DC Order Prescriptions: New metoprolol succinate 25 mg tablet extended release 24 hr 12.5 mg PO DAILY Qty: 15 0RF hydroxyzine HCl 25 mg Tablet 50 mg PO TID PRN (Reason: anxiety) Qty: 30 0RF paroxetine HCl 10 mg Tablet 10 mg PO DAILY Qty: 30 0RF guaifenesin [Mucinex] 600 mg Tablet Extended Release 12hr 600 mg PO Q12 5 Days Qty: 10 0RF dexamethasone [Decadron] 6 mg tablet 6 mg PO DAILY 5 Days Qty: 5 0RF ondansetron 4 mg tablet,disintegrating 4 mg PO DAILY PRN (Reason: nausea and vomiting) 15 Days Qty: 15 0RF losartan 25 mg tablet 25 mg PO QPM Qty: 30 0RF Continued acetaminophen-codeine 300-30 mg tablet 1 tab PO TID PRN (Reason: Pain) Rx Instructions: PER PT "TAKE AT HS FOR HELP WITH SLEEP". Discharge Orders: Discharge Order (Routine); Ordered 11/23/21 Ordered By: Yaakov Gupta Admission Data Admit Date/Time: 11/20/21 01:08 Attending Provider: Yaakov Gupta Admit Provider: José Antonio Hernandez Primary Care Provider: Westley Tavera Other Providers: José Antonio Hernandez
== END 2021-11-23 16:20 | disposition home or self-care (01) | DRG 177 ==
LOC: ED 21:14 → 2E 11-20 01:08